=== PATIENT | female | born 1955 | race Caucasian/White ===

== ENCOUNTER 2022-03-31 09:25 | Outpatient (CLI) | payer OTHER, SELFPAY ==
[2022-03-31 09:47] LABS: Hemoglobin* 14.6 gm/dL (12.0-16.0); Mean Corpuscular HGB Conc 33 gm/dL (32-36); Mean Corpuscular Hemoglobin 32 pg (26-34); Mean Corpuscular Volume 96 fL (80-100); Platelet Count* 363 K/uL (140-440); Red Blood Count 4.59 m/uL (4.00-5.20); White Blood Count* 6.65 K/uL (4.50-11.00)
[2022-03-31 09:50] LABS: Slide Review Reflex No
[2022-03-31 12:43] LABS: Albumin* 4.4 g/dL (3.3-5.0); Chloride* 105 mmol/L (96-114)
[2022-03-31 12:44] LABS: Potassium* 4.3 mmol/L (3.6-5.1); Sodium* 140 mmol/L (135-149)
[2022-03-31 12:46] LABS: Alkaline Phosphatase* 87 U/L (40-150); Aspartate Amino Transferase* 28 U/L (12-35); Bilirubin Total* 0.7 mg/dL (0.1-1.5); Blood Urea Nitrogen* 23 mg/dL (7-30); Carbon Dioxide* 25 mmol/L (20-32); Cholesterol* 244 mg/dL (90-199); Creatinine* 0.8 mg/dL (0.5-1.5); Estimated Glomerular Filt Rate 82 ml/min; Total Protein* 7.6 g/dL (6.0-8.3)
[2022-03-31 12:47] LABS: Alanine Aminotransferase* 16 U/L (4-35); Calcium* 9.5 mg/dL (8.4-10.6); Glucose* 101 mg/dL (60-115); HDL Cholesterol* 67 mg/dL (>=50); LDL Cholesterol Calculated 158 mg/dL (<100); Triglycerides* 94 mg/dL (40-149)
== END 2022-03-31 09:26 | disposition home or self-care (01) ==
PROVIDERS: PCP Physician Assistant Medical; Visit Provider Physician Assistant Medical
DX: Z01.419 Encounter for gynecological examination (general) (routine) without abnormal findings (principal); K20.0 Eosinophilic esophagitis; Z13.6 Encounter for screening for cardiovascular disorders; Z13.29 Encounter for screening for other suspected endocrine disorder
CPT/HCPCS: 80053; 80061; 84443; 85027

== ENCOUNTER 2022-06-27 08:02 | Outpatient (CLI) | payer OTHER, SELFPAY ==
--- NOTE | 2022-06-27 08:15 | CRLHL7_ITS ---
For Patients: As a result of the Century Cures Act, medical imaging exams and procedure reports are released immediately into your electronic medical record. You may view this report before your referring provider. If you have questions, please contact your health care provider. BILATERAL SCREENING MAMMOGRAM WITH COMPUTER-AIDED DETECTION TECHNIQUE: CC and MLO views were obtained. These mammographic images have been obtained using full-field digital technique. These mammographic images were interpreted with the benefit of computer-aided detection. COMPARISON FILM: 10/14/20, 02/22/17, 02/14/10. FINDINGS: There are scattered areas of fibroglandular density IMPRESSION: There is no radiographic evidence for malignancy. ASSESSMENT: BI-RADS Category 1: Negative RECOMMENDATION: Routine screening mammogram in 1 year. A lay language report of this examination will be provided to the patient. Shaji Ayala M.D. Diagnostic Radiologist [email or web address] MARTHA/Dictated by: Shaji Ayala MD @ 06/27/2022 11:44:00 AM (Electronically Signed)
== END 2022-06-27 08:03 | disposition home or self-care (01) ==
PROVIDERS: PCP Physician Assistant Medical; Visit Provider Physician Assistant Medical
DX: Z12.31 Encounter for screening mammogram for malignant neoplasm of breast (principal)
CPT/HCPCS: 77067

== ENCOUNTER 2022-10-13 07:30 | Outpatient (RCR) | payer OTHER, SELFPAY ==
--- NOTE | 2022-08-18 09:05 | PT.OPDNX ---
PT [place] [facility] Daily Note PT [facility] Daily Note Start: 04/18/22 16:04 Freq: Status: Active Protocol: Document 08/18/22 07:32 ARR (Rec: 08/18/22 09:04 ARR [email or web address]) E-signed By Maddi Licea DPT PT OP Daily Progress Note Visit Information Note Type Daily Note,Re-Evaluation Visit Number 1 Running Total Visit Number 13 Cancellation Note Cancelled Documentation -Eval: 04/18 (total visits 12) -Re-eval 08/18/22 POC 1 x 12 visits POC 1x 12 (Card x 5) Insurance Information Insurance Name [employer] [facility] R32 unspecified urinary incontinence Treating Diagnosis N39.46 Mixed incontinence ( Urge and stress incontinence) R27.8 Lack of coordination ( muscle incoordination) M79.604 pain in right leg M51.26 lumbar disc displacement Referring SHELLI Stanley ([facility]) Subjective Subjective -Things going well and last few days not as good. -Knowing when needing to have a BM has more urgency and leakage. -Low back pain returned after injection with increased leaking and urgency since pain has been worsening. Notes that bladder symptoms came on when low back pain onset 6 months ago. -Location of pain R low back area, hip down to knee posteriorly. -Pain has been ongoing nearly 6 months this was when leaking onset. Did have slip on the stairs and landed on R hip, this occurred last September/October but didn't irritate but then pain gradually onset/came on after this time. Occasional buckling 1-2x since pain onset . Leaking occurred since pain came. -Increases in pain: laying in bed, going up/down stairs, sitting (1-2 hours if sitting longer leg will go numb), unable to sleep through the night, sitting at work, dressing can't lift R LE, at synagogue kneeling, sitting driving. Standing and walking don't seem to bother. 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 Home Exercise Home Exercise Comments -PF drops and check in's Quadruped breathing bolsterd replaced seated with FA On table -Bladder health 04/18 -Urinary urgency/frequency -Urge suppression 04/18 Access Code: [email or web address] URL: [email or web address] Date: 04/28/2022 Prepared by: Maddi Licea Access Code: [email or web address] URL: [email or web address]/ Date: 08/18/2022 Prepared by: Maddi Licea Objective Other/Pertinent Objective Re-eval on 08/18/22 as follows below (total time 25 min) Posture: mild loss of lumbar lordosis, inc'd TS kyphosis, slight R lateral shift Palpation: inc'd tone with TTP R glut medius and minimus SLS (30 sec): moderate pelvic drop on L with lateral trunk lean, mild pelvic drop on R. Gait: mild antalgic gait with trunk lean to the R during stance phase on R LE RANGE OF MOTION: Lumbar ROM: -Flx: 50% reduced mobility with reduced LS/TS mobility, compensatory HS lengthening. Sx's centralized to low back. -Ext: 25% limitation with resolution of low back pain with RMT -R Rot: WNL -L Rot: WNL -R Sidebend: fingertips to lateral jt line -L Sidebend: fingertips to lateral jt line LE ROM (R/L): -Hip ER90: 60 R / 70 L -Hip IR90: 30 R / 40 L -Hip flex: 120 R with post thigh pain / >120 L STRENGTH: LE Strength (R/L) -Glut medius 3+ onR LE Dermatome: -L2: Sensation Intact/Strength Tests Strong (hip flexion) -L3: Sensation Intact/Strength Tests Strong (quad / adductors) -L4: Sensation Intact/Strength Tests WEAK (ant tib) -L5: Sensation Intact/Strength Tests WEAK (EHL / peroneals / glut med) SPECIAL TESTS: Reflexes (R/L) -Patella: 2+ L, 1+ R -Achilles: 2+ L, 1+ R LE Flexibility (R/L) -Hamstring: neg bilat -Piriformis: pos R Hip (R/L): -HOLLEY: pos R for reduced ROM and pain -Hip Scour: neg -FADIR: post R for buttock pain OTHER: -Heel walks slight drop on R LE -Seated slump neg bilat -Passive SLR neg bilat 04/28 EXTERNAL OBJECTIVE: -Movement screen: MS flexion reduced TS. MS extension reduced TS and LS. MS rotation WNL -SLS: <5 sec before LOB -Posture: Level IC. Inc'd TS kyhposis, fwd head rounded shoulders -Hip PROM: IR 40 R / . ER 70 R . Hip ext limited bilat in sidelying -Strength: glut medius 2+ Other Tests: -Coordination: inhibiition of TA with activation -Breathing: dec?d posterior and lateral ribcage mvmt with inhalation -Myofascial palpation: Decreased connective tissue mobility with skin rolling at lower abdominal areas. Wide rib angle >100 with flare on R 04/18: INTERNAL EXAMINATION INTRAVAGINAL: -Sensation: intact to touch -Observation: de- estrogenization of tissues noted with dryness, tachy to touch -Perineum: normal -Lifting contraction: visible lift -Bulge: nil Inc'd tone noted areas below -Introidus: 6 oclock at depth of 1st knuckle -Layer 1: ischiocavernosus / bulbospongiousus / superficial transverse perineal. TTP noted at introidus at 1st knuckle and at R ischio -Layer 2: External urtethral sphincter / deep transverse perineal / sphincter urethrovaginalis -Layer 3: anterior portion of PC Strength ( R / C / L): -Power (MMT): 3 -Endurance: 6 -Reps:2 -Fast twitch: 6 reps in 10 sec -Relaxation of PFM after quick contractions delayed -Brink score: squeeze pressure 1 (Zero), muscle contraction duration 1 (zero), lift 1 ( Zero) Other: -Breathing examination: dec?d posterior and lateral ribcage mvmt with inhalation Functional Test Performed & Score PFQ: bladder 14/45, bowel 3/34 , prolapse 0/15, sexual 5/40 Patient Instructed in Risks/Benefits Yes Therapeutic Exercise Therapeutic Exercise Minutes (minutes) 30 Therapeutic Exercise: To Restore TE: Indicated for improvement Functional Status in strengthening and mobility. -Handouts with written instructions and photographs of exercises were issued to the patient for exercises to be included in HEP. Answered patient questions regarding POC, and mobility/stretches to perform if pain occurs -LTR x 8 reps -N flossing knee flex/ext x 10 reps R LE -Pirifrormis stretch 4 x 20 sec R LE -PPT/APT x 6 reps Seated: -PPT/APT x 5 reps -Education for hinging from hips with getting dressed -Prior to sit/stand education for: pelvic tilt x 3 reps, staggered stance, upright posture to stand. Practice x 2 Prone: -presssup 2 x 8 reps pillow under hips Manual Therapy Techniques Manual Therapy Minutes (minutes) 5 Manual Therapy Techniques MT: indicated for improving joint mobility, reducing tissue irritability, and improving range of motion. -Prone CPA mob to L4-5 for 3 x 30 sec G3, S1 x 45 sec G3 Treatment Minutes Untimed Code Treatment Minutes 30 Timed Code Treatment Minutes 35 Total Treatment Time 65 Billing Units Therapeutic Exercise Units 2 Re-Evaluation Units 1 Assessment/Impression Assessment/Impression Pt had been seen from 04/18/22 -07/31/22 for x 12 visits during this episode of physical therapy. Focus of therapy on pelvic floor lengthening, deep breathing, and core/glut strengthening. Interventions including self- care, therapeutic exercise, manual therapy, therapeutic activity, neuromuscular re- education. Pt had been trialing x 2 wk indep mgmt of sx's with return to PT with flare of urgency/leakage. Pt revealing that onset of sx's came with onet of LBP x 6 months ago. Pt still combating lumbar radiculopathy and notes that when pain flared over the last 2 wks her urinary symptoms worsened significantly. Due to this, re -evaluation and treatment of lumbar radiculopathy is medically indicated to continue treatment on bladder symptoms. Pt would benefit from re-evaluation this date with extension of plan of care with change of goals as noted below for an additional 1x/wk x 10 wks. Pt at this time has not met all short/penitentiary goals would benefit from continued skilled therapy to resolve urinary incontinence and urgency issues, centralize lumbar radiculopathy and reduce pain. Plan of Care Physical Therapy Goals GOALS below changed due to re-eval this date STG (within 5 weeks ) 1)Pt will demonstrate full ROM of pelvic floor with ability to contract, relax and lengthen for improved contractility of tissue during ADLs 2) Pt will report voiding interval at least 1 hours without incontinence to show improved bladder filling prior to voiding 3) Pt will report reduced urinary leakage episodes no more than 1 per day for improved health of vaginal tissues 4)Pt will report ability to sleep through the night without waking due to pain LTG (within 10 weeks) 1)Pt will report reduced urinary leakage episodes no more than 2 per week for improved health of vaginal tissues 2)Pt will report voiding interval at least 2-3/ hours without incontinence to show improved bladder filling prior to voiding 3)Pt will demonstrate improved PFM squeeze strength of at least 3/5 4) Pt will demonstrate PFQ subscale score <8/45 for improved quality of life. 5) Pt will report ability to ascend/descend stairs and get dressed without pain extending below low back 6) Pt will report pain not to extend past low back on at least 12/14 days in a 2 wk period to show reduced neural irritability Daily Plan of Care Continue per POC Daily Plan of Care Comments -FDN -Prone CPA mobilizations
== END 2022-11-13 13:10 | disposition home or self-care (01) ==
PROVIDERS: PCP Physician Assistant Medical; Visit Provider Physician Assistant Medical
DX: R32 Unspecified urinary incontinence (principal); M54.50 Low back pain, unspecified; Z51.89 Encounter for other specified aftercare
CPT/HCPCS: 97110; 97112; 97140; 97161; 97162; 97164; 97535

== ENCOUNTER 2023-04-25 07:59 | Outpatient (CLI) | payer OTHER, SELFPAY | END 2023-04-25 08:00 | disposition home or self-care (01) | PROVIDERS: PCP Physician Assistant Medical; Visit Provider Physician Assistant Medical | DX: Z00.00 Encounter for general adult medical examination without abnormal findings (principal); E78.5 Hyperlipidemia, unspecified; D64.9 Anemia, unspecified; R60.0 Localized edema; K20.0 Eosinophilic esophagitis | CPT/HCPCS: 80053; 80061; 84443 ==

== ENCOUNTER 2023-07-26 13:15 | Outpatient (CLI) | payer OTHER, SELFPAY ==
--- NOTE | 2023-07-26 13:41 | XR_ITS ---
Patient: SHAUN MCKEON Facility:?[facility] Patient ID:?[id number] Site Patient ID:?[id number]. Site :?[id number] Study:?DEXA-Bone Density-07/26/2023 1:57:14 PM Ordering Physician:Mario Hills Final Report: DXA BONE MINERAL DENSITY STUDY Current height (in): 64.0. Weight (lb): 204.0. Menopause age: 51. Ethnicity: White. Reason for exam: Screening. 1. Have you had a previous hip or vertebral fracture? No. 2. Have you had any fractures during your adult life which did not result from significant trauma (e.g., auto accident)? No. 3. Did either of your parents have a hip fracture? No. 4. Do you smoke? No. 5. Have you ever taken Glucocorticoids? No. 6. Do you have rheumatoid arthritis? No. 7. Do you have secondary osteoporosis? No. 8. Do you drink 3 or more alcoholic drinks per day? No. 9. Are you being treated for osteoporosis? No. 10. Have you ever taken any of the following medications: Actonel, Evista, Fosamax, Miacalcin, Reclast, Boniva, Forteo, HRT (i.e. estrogen/hormone therapy), Protelos, Prolia, Vitamin D, Calcium, other ? please specify. ANSWER: Yes, vitamin D, calcium. 11. Do you have any of the following medical conditions: Anorexia or bulimia, asthma or emphysema, end stage renal disease, hyperparathyroidism, any seizure disorders, cancer, inflammatory bowel diseases, hysterectomy, other ? please specify. ANSWER: No. 12. What was your maximum height (inches)? 65. 13. Do you perform weight bearing exercise regularly? No. 14. Do you regularly consume dairy products? Yes. 15. Do you drink caffeinated beverages? Yes. 16. At what age did your period start? 12. 17. Are you premenopausal? No. 18. How many full term pregnancies have you had? 4. 19. Have you ever missed your period for more than 6 months in a row (not including or menopause)? No. TECHNIQUE: Bone mineral density study was performed using the [employer]. FINDINGS: The results of the study expressed as bone mineral density (BMD) are as follows: Lumbar spine L1 to L4: BMD: 1.040 g/cm2. T-score: -0.1. Z-score: 1.8 Neck Left: BMD: 0.659 g/cm2. T-score: -1.7. Z-score: -0.1 Right: BMD: 0.673 g/cm2. T-score: -1.6. Z-score: 0.0 Total Left: BMD: 0.909 g/cm2. T-score: -0.3. Z-score: 1.1 Right: BMD: 0.887 g/cm2. T-score: -0.4. Z-score: 0.9 IMPRESSION: Osteopenia. *Comparison exams done prior to 12/2019 were performed on different unit, [employer]. COMPARISON: Compared with scan of 10/14/2020, the bone mineral density has increased by 5.0 percent at the spine and increased by 0.5 percent at the hip. FRAX 10-year Fracture Risk Major Osteoporotic Fracture: 9.3 percent Hip Fracture: 1.2 percent Reported Risk Factors: [place] () Neck BMD = 0.659, BMI = 35.0 Shaji Ayala M.D. Diagnostic Radiologist [email or web address] DSM/charw: D& Transcribed: 2:12 pm DW/Dictated by: Shaji Ayala MD @ 07/27/2023 1:58:00 PM Signed by:Pradeep Ayala MD @07/27/2023 2:14:55 PM (Electronic Signature)
--- NOTE | 2023-07-26 13:43 | CRLHL7_ITS ---
For Patients: As a result of the Century Cures Act, medical imaging exams and procedure reports are released immediately into your electronic medical record. You may view this report before your referring provider. If you have questions, please contact your health care provider. BILATERAL SCREENING MAMMOGRAM WITH COMPUTER-AIDED DETECTION TECHNIQUE: CC and MLO views were obtained. These mammographic images have been obtained using full-field digital technique. These mammographic images were interpreted with the benefit of computer-aided detection. COMPARISON FILM: 06/27/22, 10/14/20, 02/22/17. FINDINGS: There are scattered areas of fibroglandular density. IMPRESSION: There is no radiographic evidence for malignancy. ASSESSMENT: BI-RADS Category 1: Negative RECOMMENDATION: Routine screening mammogram in 1 year. A lay language report of this examination will be provided to the patient. Shaji Ayala M.D. Diagnostic Radiologist [email or web address] SP/Dictated by: Shaji Ayala MD @ 07/27/2023 11:07:00 AM (Electronically Signed)
== END 2023-07-26 13:16 | disposition home or self-care (01) ==
LOC: RAD 13:17
PROVIDERS: PCP Physician Assistant Medical; Visit Provider Physician Assistant Medical
DX: Z12.31 Encounter for screening mammogram for malignant neoplasm of breast (principal)
CPT/HCPCS: 77067; 77080

== ENCOUNTER 2024-06-11 08:10 | Outpatient (CLI) | payer MEDICARE, SELFPAY ==
--- OUTSIDE RECORDS SUMMARY | 2024-06-16 18:37 | XMS_ITS | Data Portability ---
Author Organization [place] [facility] Address [address] [place] [phone] Care Team Providers Care Auto Phone Installer Name Role Phone PRUDENCIO GRETTA Primary Care Provider [phone] Assessment Encounter Date Assessment Date Assessment LastModified by Organization Details LastModified Time 01/29/2024 01/29/2024 Time spent reviewing the patient s medical record, diagnostic studies, performing a focused history and physical exam, educating the patient regarding the natural history of disease as it pertains to the patient, discussing treatment options and alternatives, medical decision making, and chartin-59 minutes. Not available 01/29/2024 11:26:58 Plan of Treatment Reminders Order Date Submit Date Provider Last Modified By Organization Details Last Modified Time Details Appointments None record ed. Lab None record ed. Referral None record ed. Procedures None record ed. Surgeries None record ed. Imaging None record ed. Medication Orders None record ed. Patient TargetsNo targets recorded. Patient InstructionsNo instructions recorded. Reason for Referral None Reported. Problems Name Problem SNOMED Code Status Onset Date Resolution Date Notes Provider Name and Address Organization Details Recorded Time Gastroesophage al reflux disease 880679260 Active 2023 Amaya Perrin PA-C [address], [place], [phone], [place] [facility] 11:22:04 Rosacea 275582041 Active 2023 Amaya Perrin PA-C [address], [place], [phone], [place] [facility] 11:22:28 Problem Notes None recorded. Procedures Surgical History Date Name Laterality Status Provider Name and Address Organization Details Recorded Time 7 Tubal ligation completed Amaya Perrin PA-C [address] [place], [address], [facility] 01/29/2024 11:20:40 0 Tonsillectomy completed Amaya Perrin PA-C [address] [place], [address], [facility] 01/29/2024 11:20:40 Imaging Results None recorded. Procedure Notes None recorded. Medical Equipment None Reported. Allergies No known drug allergies Medications Name Sig Start Date Stop Date Status Note LastModified by Organization Details LastModified Time metronidazole active Not Available Not Available Not Available omeprazole active Not Available Not Av ailable Not Available tetracycline active Not Available Not Available Not Available Premarin active Not Available Not Avai lable Not Available Vitals Date Recorded Body height Body mass index (BMI) Body weight Provider Name and Address Organization Details Last Updated DateTime 01/29/2024 165.1 cm 34.4 kg/m2 03625.62 g Amaya Perrin PA-C [address] [place], [address], [facility] 01/29/2024 11:20:20 Social History Question Answer Notes LastModified by [employer] Details LastModified Time Tobacco Smoking Status Never Smoker Amaya Perrin PA-C [address] [place], [address], [facility] 01/29/2024 11:20:36 What Is Your Level Of Alcohol Consumption? Occasional Information not available 01/29/2024 How Many Times Per Week Do You Consume Alcohol? Less Than 1 Time Per Week Information not available 01/29/2024 Are You Currently Employed? No Information not available 01/29/2024 What Is Your Occupation? Retired Information not available 01/29/2024 How Many Times Per Week Do You Exercise? 1-2 Times Per Week Information not available 01/29/2024 Sex: Unknown Functional Status Question Answer Note LastModified by Organizat ion Details LastModified Time What is your exercise level? Occasional Information not available 01/29/2024 Mental Status None recorded. Family History Relationship Description Onset Age of this Age Resolved Age Notes LastModified by Organization Details LastModified Time Father Pulmonary embolism post surger y Not available 01/29/2024 11:22:39 Medical History Condition Response Hyperlipidemia Y Anemia Y Sleep Disorder Y Gynecological History Statement/Question Response How many childrens do you have? 3 Number of Miscarriages 0 Number of Pregnancies 4 Are you or planning to become p regnant? N Are you ? N Obstetrics History GPAL:G 0 P 0 0 0 0 Past Encounters Encounter ID Performer Location Encounter Start Date Encounter Closed Date Diagnosis/Indication Diagnosis SNOMED-CT Code Diagnosis ICD10 Code [id number] MD Jorden Anne [address] [place] [address] 01/29/2024 09:55:44 01/31/2024 16:50:14 Pain co-occurrent and due to varicose veins of bilateral legs [id number] 3320155 I83.813 [id number] MD Jorden Anne e [address] [place] [address] 01/29/2024 09:55:43 02/01/2024 04:09:52 Pain co-occurrent and due to varicose veins of bilateral legs 5250127923 3886660 I83.813 Health Concerns Section Related Observation LastModified by Organization Detai ls LastModified Time None Recorded Concern Status LastModified by Organization Details LastModified Time None Recorded Advance Directives Directive None Recorded Payers Encounter Date Sequence Insurance Name Policy Number Policy Whitfield Covered Member ID Whitfield Member ID Guarantor Name 01/29/2024 1 [place]) [id number] [place] Luis [id number] Venice Luis 01/29/2024 1 [place]) [id number] Venice Luis [id number] Venice Luis Notes Date Note Type Note Provider Name and Address Organization Details Recorded Time 01/29/2024 text/html PVC (Q4U) InitialReported bypatient.Please select the location of your concernRight Leg: Ankle/Foot; Left Leg: Ankle/Foot; Swelling of both ankles. Tightness in both legs above ankle and some discoloration. Tenderness to the touch in both. I have had symptoms:More than 1 year; Symptoms have been increasing over the past couple months. Have you ever experienced any of the following symptoms?Pain;Aching; Tired legs/Fatigue;Heavines s;Itching;Burning;Num bness/Tingling;Swelli ng/Redness;Skin discoloration When do the symptoms occur?Sitting;Standin g up What activities of daily living do the symptoms affect?Sleep;Chores;L eisure Activities What relieves your symptoms?Leg elevation; compression socks help some Do you wear compression stockings to relieve your symptoms?Yes How long have you worn compression stockings?More than 6 months Have you ever been prescribed medical grade compression stockings?No; Primary physician suggested I try compression socks to see if they helped with swelling. Have you ever had a previous vein evaluation or treatment?No Have you ever been diagnosed with the following?None Lisa Malave MD [address], [place], [address], [place] [facility] 01/29/2024 14:33:08 01/29/2024 text/html The patient is a 68 yo female who presents with complaints of bilateral lower extremity varicose veins and increasing symptoms for the past few years. Symptoms include: pain, aching, tired legs, heavy legs, fatigue, itching, burning, numbness, recurring swelling, spider veins, rash, and skin discoloration. There is no history of DVT, SVT, ulceration, cellulitis or phleborrhagia. Symptom location: Bilateral, ankle/leg Symptom severity: 6/10; moderately severe Symptoms occur with: prolonged sitting and standing, sleeping, after activity/exercise, and are worse later in the day. ADLs affected by symptoms:-Sleep: interfere with patient s ability to fall asleep and cause patient to awaken from sleep frequently.-Exercise/ activity: limit ability to exercise, including walking.-Chores: Avoids chores or needs to take breaks to walk and/or elevate legs.-Leisure activities: Avoids activities or needs to take breaks to walk and/or elevate. Conservative measures implemented without relief of symptoms:-avoidance of prolonged periods of sitting or standing,-regular exercise including moderate daily walking,-leg elevation,-weight control,-GCS 15-20 mmHg >3 months,-OTC analgesics. Patient denies history of (Cyanoacrylate Adhesive Ablation screening):-Autoimmun e conditions-Atopic Dermatitis/Eczema-Sailaja ction to household or medical adhesives-Reaction to nail salon treatment-Reaction to bandage adhesives-3 or more allergies Lisa Malave MD [address], [place], [address], [place] [facility] 01/29/2024 14:33:41 OBGyn Episode No OBEpisode recorded.
--- OUTSIDE RECORDS SUMMARY | 2024-06-16 18:37 | XMS_ITS | Clinical Summary ---
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 Family History Medical History Relation Name Comments Other Mother macular degener ation Relation Name Status Comments Mother Social History Tobacco Use Types Packs/Day Years Used Date Smoking Tobacco: Never Alcohol Use Standard Drinks/Week Comments Not Asked 0 (1 standard drink = 0.6 oz pur e alcohol) Comments No Sex and Gender Information Value Date Recorded Sex Assigned at Not on file 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 Gender Identity Not on file Sexual Orientation Not on file Obstetrics History Last Filed Vital Signs Vital Sign Reading Time Taken Comments Blood Pressure 108/70 10/22/2018 3:25 PM CDT Pulse 62 10/22/2018 3:25 PM CDT Temperature - - Respiratory Rate - - Oxygen Saturation - - Inhaled Oxygen Concentration - - Weight - - Height - - Body Mass Index - - Plan of Treatment Health Maintenance Due Date Last Done Comments Tdap 1967 Depression screening for age 12+ 1968 BMI (ht and wt on same day) for age 18+ 1974 Hepatitis C screening for age 18-79 1974 Tetanus booster 1976 Colonoscopy through age 75 2001 Lipids for age 45-75 2001 Mammogram for age 45-75 2001 Zoster (shingles) series for age 50+ (1 of 2) 2006 DEXA/DXA scan for age 65+ 2021 Pneumococcal series for age 65+ (1 of 1 - PCV) 2021 COVID-19 vaccine series ( - 2023- season) 2024 06/13/2021, 09/23/2020 Influenza for age 65+ 03/09/2024 [place] [address] Care Teams Banking And Finance Instructor Relationship Specialty Start Date End Date Pcp, No . PCP - General 10/17/18
== END 2024-06-11 08:11 | disposition home or self-care (01) ==
LOC: NFLDREF 06-16 18:35
PROVIDERS: PCP Physician Assistant Medical; Referring Provider Physician Assistant Medical; Visit Provider Physician Assistant Medical
DX: L71.9 Rosacea, unspecified (principal); N39.46 Mixed incontinence; E78.2 Mixed hyperlipidemia; N95.2 Postmenopausal atrophic vaginitis; K20.0 Eosinophilic esophagitis; Z13.9 Encounter for screening, unspecified
CPT/HCPCS: 80053; 80061; 84443

== ENCOUNTER 2024-06-17 19:42 | Outpatient (CLI) | payer MEDICARE, SELFPAY ==
--- OUTSIDE RECORDS SUMMARY | 2024-06-17 19:46 | XMS_ITS | Data Portability ---
Author Organization [place] [facility] Address [address] [place] [id number] Care Team Providers Care Recycling Worker Name Role Phone PRUDENCIO GRETTA Primary Care Provider [phone] Assessment Encounter Date Assessment Date Assessment LastModified [...] Details Recorded Time Gastroesophage al reflux disease 325078711 Active 2023 Amaya Perrin PA-C [address], [place], [address], [place] [facility] 11:22:04 Rosacea 774436823 Active 2023 Amaya Perrin PA-C [address], [place], [address], [place] [facility] 11:22:28 Problem Notes None recorded. Procedures Surgical History Date Name Laterality Status Provider Name and Address Organization Details Recorded Time 7 Tubal ligation completed Amaya Perrin PA-C [address] [place], [address], [facility] 01/29/2024 11:20:40 0 Tonsillectomy completed Amaya Perrin PA-C [address] [place], [address], [facility] 01/29/2024 11:20:40 Imaging Results None recorded. Procedure [...] Updated DateTime 01/29/2024 165.1 cm 34.4 kg/m2 45623.62 g Amaya Perrin PA-C [address] [place], [address], [facility] 01/29/2024 11:20:20 Social History Question Answer Notes LastModified by [employer] Details LastModified Time Tobacco Smoking Status Never Smoker Amaya Perrin PA-C [address] [place], [address], [facility] 01/29/2024 11:20:36 What Is Your Level Of [...] Diagnosis/Indication Diagnosis SNOMED-CT Code Diagnosis ICD10 Code [id number] MD Jorden Anne [address] [place] [address] 01/29/2024 09:55:44 01/31/2024 16:50:14 Pain co-occurrent and due to varicose veins of bilateral legs [id number] I83.813 [id number] MD Jorden Anne e [address] [place] [address] 01/29/2024 09:55:43 02/01/2024 04:09:52 Pain co-occurrent and due to varicose veins of bilateral legs [id number] I83.813 Health Concerns Section Related Observation LastModified by Organization Detai ls LastModified Time None Recorded Concern Status LastModified by Organization Details LastModified Time None Recorded Advance Directives Directive None Recorded Payers Encounter Date Sequence Insurance Name Policy Number Policy Whitfield Covered Member ID Whitfield Member ID Guarantor Name 01/29/2024 1 [place]) [id number] [place] Luis [id number] [place] Luis 01/29/2024 1 [place]) [id number] Venice Luis [id number] Venice Luis Notes Date Note Type Note [...] Lisa Malave MD [address], [place], [address], [place] [facility] 01/29/2024 14:33:08 [...] adhesives-3 or more allergies Lisa Malave MD [address], [place], [address], [place] [facility] 01/29/2024 14:33:41 OBGyn Episode No OBEpisode recorded.
--- OUTSIDE RECORDS SUMMARY | 2024-06-17 19:46 | XMS_ITS | Clinical Summary ---
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 PCP - General 10/17/18
--- NOTE | 2024-06-25 08:58 | W.PM.SLEEP ---
Sleep Study Details Details Interpreting Provider: Georgette Date of Sleep Study: 06/17/24 Sleep Study Details: STUDY TYPE:? Home unattended ? BMI:? 34.4 ORDERING PROVIDER:Rhea Palomino INDICATION:? Concern about sleep apnea ? SLEEP SUMMARY:? 474 minutes monitored RESPIRATORY SUMMARY:? AHI per CMS guidelines 5.7, per rule 1A 9.8 Supine AHI 12.9, right lateral AHI 4.5 Low oxygen 84 8.3% of study oxygen less than 90% Snoring 23.4% PERIODIC LIMB MOVEMENTS OF SLEEP:? Not record CARDIAC:? Range 46-96, mean 55.5 beats per minute IMPRESSION:? Mild obstructive sleep apnea per CMS guidelines. There were significant desaturations. RECOMMENDATION: Trial of AutoSet CPAP with follow-up overnight oximetry.
== END 2024-06-17 19:43 | disposition home or self-care (01) ==
LOC: SLEEP 19:45
PROVIDERS: PCP Physician Assistant Medical; Visit Provider Otolaryngology
DX: G47.33 Obstructive sleep apnea (adult) (pediatric) (principal)
CPT/HCPCS: 95806

== ENCOUNTER 2024-07-29 15:03 | Outpatient (CLI) | payer MEDICARE, SELFPAY ==
--- NOTE | 2024-07-29 15:20 | CRLHL7_ITS ---
For Patients: As a result of the Century Cures Act, medical imaging exams and procedure reports are released immediately into your electronic medical record. You may view this report before your referring provider. If you have questions, please contact your health care provider. BILATERAL SCREENING MAMMOGRAM WITH COMPUTER-AIDED DETECTION AND TOMOSYNTHESIS TECHNIQUE: CC and MLO views were obtained. These mammographic images have been obtained using full-field digital technique. These mammographic images were interpreted with the benefit of computer-aided detection. Breast Tomosynthesis was used in this interpretation. COMPARISON FILM: 07/26/23, 06/27/22, 10/14/20. FINDINGS: There are scattered areas of fibroglandular density. IMPRESSION: There is no radiographic evidence for malignancy. ASSESSMENT: BI-RADS Category 1: Negative RECOMMENDATION: Routine screening mammogram in 1 year. A lay language report of this examination will be provided to the patient. Juve Tsang M.D. Diagnostic/Nuclear Medicine Radiologist [email or web address] DIEGO/greta SP/Dictated by: Juve Tsang MD @ 07/31/2024 10:14:00 AM (Electronically Signed)
== END 2024-07-29 15:04 | disposition home or self-care (01) ==
LOC: MAMMO 15:04
PROVIDERS: PCP Physician Assistant Medical; Visit Provider Physician Assistant Medical
DX: Z12.31 Encounter for screening mammogram for malignant neoplasm of breast (principal)
CPT/HCPCS: 77063; 77067

== ENCOUNTER 2025-02-02 08:15 | Outpatient (RCR) | payer MEDICARE, SELFPAY | END 2025-06-02 23:59 | disposition home or self-care (01) | PROVIDERS: PCP Physician Assistant Medical; Visit Provider Physician Assistant Medical | DX: M25.561 Pain in right knee (principal); Z51.89 Encounter for other specified aftercare | CPT/HCPCS: 97110; 97161 ==

== ENCOUNTER 2025-06-22 11:30 | Outpatient (CLI) | payer MEDICARE, SELFPAY | END 2025-06-22 11:31 | disposition home or self-care (01) | LOC: NFLDREF 06-25 12:02 | PROVIDERS: PCP Physician Assistant Medical; Referring Provider Physician Assistant Medical; Visit Provider Physician Assistant Medical | DX: E78.2 Mixed hyperlipidemia (principal); Z13.9 Encounter for screening, unspecified | CPT/HCPCS: 80053; 80061; 84443 ==